=== PATIENT | male | born 1970 | race Caucasian/White ===

== ENCOUNTER 2016-09-01 16:16 | Emergency (ER) | payer BC, OTHER ==
[2016-09-01 16:33] VITALS: BP 124/82
[2016-09-01 16:59] LABS: CHLORIDE,CL 99 mmol/L (98-107); SODIUM,NA 137 mmol/L (136-145)
--- NOTE | 2016-09-01 17:10 | EDM.PDOC ---
ED HPI GENERAL MEDICAL PROBLEM - General Chief Complaint: General Stated Complaint: "dehydration hand cramping" Time Seen by Provider: 09/01/16 16:34 Source of Information: Reports: Patient, Family History Limitations: Reports: No limitations - History of Present Illness INITIAL COMMENTS - FREE TEXT/NARRATIVE: HAs hx/o dehydration in past. Now with cramping of his hands. NO N/V/D. Eating and drinking ok. No other specific complaints Onset: gradual Duration: Day(s):, Constant Location: Reports: other (generalized) Severity: mild Improves with: Reports: None Worsens with: Reports: None Context: Reports: Activity Associated Symptoms: Reports: no other symptoms Treatments DUPLICATE MAKER: Reports: Other (see below) Other Treatments DUPLICATE MAKER: po fluids Lower Back Pain Score (Numeric/FACES): 3 Bilateral Hand Pain Score (Numeric/FACES): 3 - Related Data Allergies Allergy/AdvReac Type Severity Reaction Status Date / Time No Known Allergies Allergy Verified 09/01/16 16:17 Home Meds: Home Meds Losartan [Cozaar] 100 mg PO BEDTIME 11/12/14 [History] Moexipril [Univasc] 15 mg PO DAILY 11/12/14 [History] Cholecalciferol (Vitamin D3) [Vitamin D3] 2,000 units PO DAILY 11/17/15 [History ] Multivitamin [One Daily] 1 tab PO DAILY 11/17/15 [History] Past Medical History Cardiovascular History: Reports: Hypertension Genitourinary History: Reports: Other (see below) (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.) Other Genitourinary History: Membranous Glomerulonephritis, Protien Urea Social & Family History - Family History Family Medical History: Noncontributory - Tobacco Use Smoking Status *Q: Never Smoker Second Hand Smoke Exposure: No - Caffeine Use Caffeine Use: Reports: None - Alcohol Use Days Per Week of Alcohol Use: 0 Number of Drinks Per Day: 2 (Usually wine about 2 times per year) Total Drinks Per Week: 0 - Recreational Drug Use Recreational Drug Use: No Drug Use in Last 12 Months: No - Living Situation & Occupation Living situation: Reports: with family, Occupation: employed ([employer], 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) ED ROS GENERAL - Review of Systems Review Of Systems: See Below Constitutional: Reports: no symptoms HEENT: Reports: No symptoms Respiratory: Reports: No Symptoms Cardiovascular: Reports: No symptoms GI/Abdominal: Reports: No symptoms Musculoskeletal: Reports: other (hand cramps) ED EXAM, GENERAL - Physical Exam Exam: See Below Exam Limited By: No limitations General Appearance: alert, WD/WN, no apparent distress Throat/Mouth: Normal oropharynx Head: atraumatic Neck: supple Respiratory/Chest: lungs clear, normal breath sounds Cardiovascular: regular rate, rhythm GI/Abdominal: non tender Extremities: no pedal edema Course - Vital Signs Last Recorded V/S: Last Vital Signs Temp 36.6 C 09/01/16 16:16 Pulse 83 09/01/16 16:16 Resp 18 09/01/16 16:16 BP 124/82 09/01/16 16:16 Pulse Ox 97 09/01/16 16:16 - Orders/Labs/Meds Orders: Active Orders 24 hr Category Date Time Status UA W/MICROSCOPIC [URIN] Stat Lab 09/01/16 16:55 Results Labs: Laboratory Tests 09/01/16 09/01/16 09/01/16 Range/Units 16:45 16:45 16:55 WBC 11.0 H (4.0-10.2) K/uL RBC 4.54 (4.33-5.41) M/uL Hgb 14.0 (13.1-16.8) g/dL Hct 40.4 (39.0-49.0) % MCV 89.0 (84.0-98.0) fL MCH 30.8 (28.2-33.3) pg MCHC 34.7 (31.7-36.0) g/dL RDW 13.0 (11.2-14.1) % Plt Count 252 (150-350) K/uL Neut % (Auto) 80.3 H (45.0-80.0) % Lymph % (Auto) 12.2 (10.0-50.0) % [place] % (Auto) 6.8 (2.0-14.0) % Eos % (Auto) 0.2 (0.0-5.0) % Baso % (Auto) 0.5 (0.0-2.0) % Neut # (Auto) 8.79 H (1.40-7.00) K/uL Lymph # (Auto) 1.34 (0.50-3.50) K/uL [place] # (Auto) 0.74 (0.00-1.00) K/uL Eos # (Auto) 0.02 (0.00-0.50) K/uL Baso # (Auto) 0.06 (0.00-0.20) K/uL Sodium 137 (136-145) mmol/L Potassium 4.4 (3.5-5.1) mmol/L Chloride 99 (98-107) mmol/L Carbon Dioxide 28.3 (21.0-32.0) mmol/L BUN 20 H (7-18) mg/dL Creatinine 1.34 H (0.51-1.17) mg/dL Est Cr Clr Drug Dosing TNP Estimated GFR (MDRD) 57 mL/min Glucose 106 (74-106) mg/dL Calcium 9.4 (8.5-10.1) mg/dL Total Bilirubin 0.5 (0.2-1.0) mg/dL AST 20 (15-37) U/L ALT 20 (12-78) U/L Alkaline Phosphatase 44 L (46-116) IU/L Total Protein 6.4 (6.4-8.2) g/dL Albumin 3.7 (3.4-5.0) g/dL Urine Color Yellow Urine Appearance Slightly cloudy Urine pH 5.5 (5.0-9.0) Ur Specific [place] >= 1.030 (1.005-1.030) Urine Protein >=300 H (NEGATIVE) mg/dL Urine Glucose (UA) Negative (NEGATIVE) mg/dL Urine Ketones Negative (NEGATIVE) mg/dL Urine Occult Blood Moderate H (NEGATIVE) Urine Nitrite Negative (NEGATIVE) Urine Bilirubin Negative (NEGATIVE) Urine Urobilinogen 0.2 (0.2-1.0) E.U./dL Ur Leukocyte Esterase Negative (NEGATIVE) - Re-Assessments/Exams Free Text/Narrative Re-Assessment/Exam: 09/01/16 17:09 Pt stable in ER D/W pt and lab results. Pt declins IVF Departure - Departure Time of Disposition: 19:15 Disposition: Home, Self-Care 01 Clinical Impression: Cramps, extremity Forms: ED Department Discharge Additional Instructions: Follow up in clinic Oral hydration as needed - My Orders Last 24 Hours: My Active Orders 09/01/16 16:55 UA W/MICROSCOPIC [URIN] Stat - Assessment/Plan Last 24 Hours: My Active Orders 09/01/16 16:55 UA W/MICROSCOPIC [URIN] Stat
== END 2016-09-01 17:17 | disposition home or self-care (01) ==
LOC: LL.ED 16:16
DX: R25.2 Cramp and spasm (principal); I10 Essential (primary) hypertension; Z79.899 Other long term (current) drug therapy
CPT/HCPCS: 36415; 80053; 81001; 85025; 99284